=== PATIENT | male | born 1945 | race Caucasian/White ===

== ENCOUNTER → 2017-09-27 | Outpatient (CLI) | payer MEDICARE, MEDICAID ==
[~2017-09-27] MED LIST: ACETAMINOPHEN-1 EAC1 PO; ASPIR 8181 MG PO; BACTRIM DS TAB1 EACH PO; CARVEDILOL6.25 MG PO; CLONIDINE HCL0.2 M2 PO; FUROSEMIDE 20 M20 MG PO; GLUCOPHAGE500 MG PO; GLUCOTROL5 MG PO; ISOSORBIDE DINI30 MG PO; KEFLEX500 MG PO; KLOR-CON 1010 MEQ PO; LEVAQUIN 500 M500 M2 PO; LISINOPRIL20 MG PO; MEDROLDOSEPACK PO; NEURONTIN 300300 M1 PO; NIACIN SR 250250 MG PO; NORCO 5-325 TA1 EACH PO; NORTRIPTYLINE H10 M1 PO; NORVASC10 MG PO; PLAVIX 75 MG TA75 M1 PO; PRILOSEC 20 MG20 MG PO; PROAIR HFA8.5 GM INH; PROMETHAZINE D480 ML PO; TAMSULOSIN HCL0.4 M1 PO; TESSALON PERLE100 MG PO; TRAZODONE HCL50 MG PO; VITAMIN D50000 UNIT PO; ZANTAC 150MG T150 M1 PO; ZPAK PO
== END ==
LOC: M.WC 01:42
DX: E11.621 Type 2 diabetes mellitus with foot ulcer (principal); L97.421 Non-pressure chronic ulcer of left heel and midfoot limited to breakdown of skin; E11.51 Type 2 diabetes mellitus with diabetic peripheral angiopathy without gangrene; I70.202 Unspecified atherosclerosis of native arteries of extremities, left leg; I87.2 Venous insufficiency (chronic) (peripheral); I10 Essential (primary) hypertension; G47.30 Sleep apnea, unspecified; I25.2 Old myocardial infarction; F03.90 Unspecified dementia, unspecified severity, without behavioral disturbance, psychotic disturbance, mood disturbance, and anxiety; F17.210 Nicotine dependence, cigarettes, uncomplicated; Z96.651 Presence of right artificial knee joint; Z68.27 Body mass index [BMI] 27.0-27.9, adult

== ENCOUNTER → 2017-10-04 | Outpatient (CLI) | payer MEDICARE, MEDICAID | LOC: M.WC 02:22 | DX: E11.621 Type 2 diabetes mellitus with foot ulcer (principal); L97.421 Non-pressure chronic ulcer of left heel and midfoot limited to breakdown of skin; I70.202 Unspecified atherosclerosis of native arteries of extremities, left leg; E11.610 Type 2 diabetes mellitus with diabetic neuropathic arthropathy; E11.51 Type 2 diabetes mellitus with diabetic peripheral angiopathy without gangrene; I87.2 Venous insufficiency (chronic) (peripheral); I10 Essential (primary) hypertension; I25.2 Old myocardial infarction; L84 Corns and callosities; G47.30 Sleep apnea, unspecified; J44.9 Chronic obstructive pulmonary disease, unspecified; F03.90 Unspecified dementia, unspecified severity, without behavioral disturbance, psychotic disturbance, mood disturbance, and anxiety; F17.210 Nicotine dependence, cigarettes, uncomplicated; Z96.651 Presence of right artificial knee joint ==

== ENCOUNTER → 2017-10-11 | Outpatient (CLI) | payer MEDICARE, MEDICAID | LOC: M.WC 01:21 | DX: E11.621 Type 2 diabetes mellitus with foot ulcer (principal); L97.421 Non-pressure chronic ulcer of left heel and midfoot limited to breakdown of skin; E11.610 Type 2 diabetes mellitus with diabetic neuropathic arthropathy; E11.51 Type 2 diabetes mellitus with diabetic peripheral angiopathy without gangrene; I87.2 Venous insufficiency (chronic) (peripheral); I10 Essential (primary) hypertension; I25.2 Old myocardial infarction; L84 Corns and callosities; G47.30 Sleep apnea, unspecified; J44.9 Chronic obstructive pulmonary disease, unspecified; F03.90 Unspecified dementia, unspecified severity, without behavioral disturbance, psychotic disturbance, mood disturbance, and anxiety; F17.210 Nicotine dependence, cigarettes, uncomplicated; Z96.651 Presence of right artificial knee joint ==

== ENCOUNTER → 2017-10-18 | Outpatient (CLI) | payer MEDICARE, MEDICAID | LOC: M.WC 01:39 | DX: E11.621 Type 2 diabetes mellitus with foot ulcer (principal); I70.202 Unspecified atherosclerosis of native arteries of extremities, left leg; L97.421 Non-pressure chronic ulcer of left heel and midfoot limited to breakdown of skin; E11.51 Type 2 diabetes mellitus with diabetic peripheral angiopathy without gangrene; I87.2 Venous insufficiency (chronic) (peripheral); I10 Essential (primary) hypertension; I25.2 Old myocardial infarction; L84 Corns and callosities; G47.30 Sleep apnea, unspecified; J44.9 Chronic obstructive pulmonary disease, unspecified; F03.90 Unspecified dementia, unspecified severity, without behavioral disturbance, psychotic disturbance, mood disturbance, and anxiety; F17.210 Nicotine dependence, cigarettes, uncomplicated; Z96.651 Presence of right artificial knee joint ==

== ENCOUNTER 2018-12-15 22:41 | Inpatient (IN) | payer MEDICARE, MEDICAID ==
[~2018-12-15] VITALS: Ht 182.9 cm; Wt 87.5 kg
[2018-12-15 22:42] VITALS: BP 146/76
[2018-12-15 23:09] LABS: ABSOLUTE EOSINOPHILS 0.2 thou/uL (0.0-0.7); ABSOLUTE LYMPHOCYTES 1.4 thou/uL (0.8-5.3); ABSOLUTE MONOCYTES 0.8 thou/uL (0.0-1.2); ABSOLUTE NEUTROPHILS 4.9 thou/uL (1.6-8.1); BASOPHILS 0.6 %; EOSINOPHILS 2.3 %; HEMATOCRIT 36.8 % (42.0-52.0); HEMOGLOBIN 12.3 gm/dL (14.0-18.0); LYMPHOCYTES 18.8 %; MCH 29.5 pg (26.0-34.0); MCHC 33.3 g/dL (28.0-37.0); MCV 88.4 fL (80.0-100.0); MONOCYTES 10.9 %; NUCLEATED RBCS 0 /100WBC; PLATELET COUNT* 277 thou/uL (150-400); POLYS 67.4 %; RBC 4.16 mil/uL (4.50-6.00); RDW-CV 14.5 % (10.5-14.5); WBC 7.2 thou/uL (4.0-11.0)
[2018-12-15 23:22] LABS: APTT 33.4 Seconds (25.0-31.3); INR 1.2
[2018-12-15 23:24] LABS: BE 0.2 mmol/L (-2 to +3); PCO2 39.5 mmHg (35.0-45.0); PO2 72.1 mmHg (75.0-100.0); pH 7.414 (7.340-7.450)
[2018-12-15 23:29] LABS: ALBUMIN 3.5 g/dL (3.4-5.0); ALKALINE PHOSPHATASE 91 U/L (46-116); ANION GAP 9 mmol/L (7-16); BUN 19 mg/dL (7-18); CHLORIDE 104 mmol/L (98-107); CO2 25 mmol/L (21-32); CREATININE 1.1 mg/dL (0.6-1.3); GLUCOSE 129 mg/dL (70-99); SGOT 13 U/L (15-37); SGPT 16 U/L (30-65); SODIUM 138 mmol/L (136-145); TOTAL BILIRUBIN 0.5 mg/dL (<0.1-1.0); TOTAL PROTEIN 7.9 g/dL (6.4-8.2); TROPONIN-I LEVEL <0.06 ng/mL (<0.06)
[2018-12-16 00:17] LABS: INFLUENZA A ANTIGEN None Detected (None Detect); INFLUENZA B ANTIGEN None Detected (None Detect)
[2018-12-16 04:43] VITALS: BP 127/80
[2018-12-16 07:40] VITALS: BP 132/78
[2018-12-16 07:57] VITALS: BP 134/81
--- NOTE | 2018-12-16 08:14 | NUR ---
PATIENT CAME TO THE FLOOR FROM THE ER VIA BED IN STABLE CONDITION. VITAL SIGNS STABLE ON 6 LITERS OF OXYGEN THROUGH NASAL CANNULA. LUNGS ARE VERY TIGHT AND DIMINISHED SOUNDING, HEART RATE IS IRREGULAR. ROOM ORIENTATION AND ADMISSION ASSESSMENT DONE, CALL LIGHT IS IN REACH, WILL CONTINUE TO MONITOR.
[2018-12-16] MEDS ORDERED: ELIQUIS5 MG PO (10:48)
[2018-12-16] MEDS ORDERED: LIPITOR80 MG PO (10:51)
[2018-12-16] MEDS ORDERED: SYMBICORT160 MCG/4. INH (10:58)
[2018-12-16] MEDS ORDERED: SPIRIVA INH (10:58)
[2018-12-16 14:03] VITALS: BP 132/77
--- NOTE | 2018-12-16 16:13 | NUR ---
CARMEN met with pt and pt dtr, pt son in law, 2 pt granddtrs and there was also a great granddtr (baby) present visiting pt. Pt alert, oriented, possibly confused at times but easily directed. Pt lives in his sister in law's home and pt son also lives there. Pt dtr expressed awareness that the ER stated pt would need a nebulizer and oxygen at dc. Pt and pt family questioned somebody discussing life support? Lung Ca? CARMEN explained that someone might have been asking pt and pt family about DPOA and Advanced Directive which would specify pt wishes and whether or not pt would want to be on life support. CARMEN offered information/education for DPOA and AD if pt/family interested. Pt dtr expressed need for housing information for pt as pt recently learned that his sister in law plans to move out of her house and has expressed to pt and pt son that they will need to find a different place to live. CARMEN provided [employer] and pointed out the section for housing resources and senior housing options. SW to continue to follow to assist with safe dc planning...possibly tomorrow; with assistance in arranging for nebulizer and home oxygen if pt qualifies.
--- NOTE | 2018-12-16 17:09 | EKG ---
[place] [address] ELECTROCARDIOGRAM REPORT Name: SALINAS MONTAÑO Room: [address] ADM IN M.R.#: [id number] Admission: 12/16/18 Attend Phys: Stacie Cobian Discharge: Date of : 49 Report #: [id number] THIS REPORT FOR: //name// [facility] ED Test Date: 2018-12-15 Test Time: 23:43:47 Pat Name: SALINAS MONTAÑO Department: Room: [facility] Gender: M Associate Genetics Professor: SAVANNAH : 1945 Requested By: Payton Merrill Order Number: [id number] MD: Hoang Almaraz Measurements Intervals [place] Rate: 86 P: DC: QRS: 81 QRSD: 92 T: 35 QT: 379 QTc: 454 Interpretive Statements Atrial fibrillation Borderline right axis deviation Minimal ST depression, anterolateral leads Compared to ECG 12/10/2016 15:51:25 Sinus rhythm no longer present ST (T wave) deviation still present Electronically Signed On 12-16-2018 17:08:58 CDT by Hoang Almaraz [email or web address] <ELECTRONICALLY SIGNED> By: Hoang Almaraz MD, FACC 12/16/18 1708 [id number] Hoang Almaraz MD, FAC /EPI
[2018-12-16 17:41] VITALS: BP 141/61
--- NOTE | 2018-12-16 17:56 | NUR ---
PATIENT IS ALERT AND ORIENTED TODAY VERY PLEASANT. UP IN ROOM WITH WALKER DUE TO FOOT WOUNDS. PHOTOS TAKEN AND REDRESSED TODAY. VITAL SIGNS STABLE ON ROOM AIR AND OXYGEN NEEDED. NO COMPLAINTS OF PAIN TODAY. CALL LIGHT IS IN REACH WILL CONTINUE TO MONITOR,
[2018-12-17] VITALS (7 sets, daily range): BP systolic 105–134; BP diastolic 58–68
[2018-12-17 04:17] LABS: HEMATOCRIT 36.3 % (42.0-52.0); MCH 29.4 pg (26.0-34.0); MCHC 33.1 g/dL (28.0-37.0); MCV 88.7 fL (80.0-100.0); MPV 7.4 fl. (7.2-11.1); NUCLEATED RBCS 0 /100WBC; PLATELET COUNT* 277 thou/uL (150-400); RBC 4.09 mil/uL (4.50-6.00); RDW-CV 14.2 % (10.5-14.5); WBC 9.3 thou/uL (4.0-11.0)
[2018-12-17 04:46] LABS: CALCIUM 8.7 mg/dL (8.5-10.1); CREATININE 0.9 mg/dL (0.6-1.3); MAGNESIUM 2.3 mg/dL (1.8-2.4); POTASSIUM 4.2 mmol/L (3.5-5.1)
--- NOTE | 2018-12-17 06:05 | NUR ---
PATIENT SITTING IN RECLINER AT BEGINNING OF SHIFT. PT UP AD ROSI IN ROOM WITH USE OF WALKER. PT ON ROOM AIR. PT DENIES PAIN/NAUSEA. PT WITH SALINE LOCK IN LT AC. PT WITH 2100 BLOOD SUGAR OF 281; LISPRO 12 UNITS GIVEN. PT DENIES NEEDS AT THIS TIME. FREQUENTLY USED ITEMS AND CALL LIGHT WITHIN REACH. SIDERAILS UPX2. WILL CONTINUE TO MONITOR.
[2018-12-17 06:11] LABS: ABSOLUTE LYMPHOCYTES 0.7 thou/uL (0.8-5.3); ABSOLUTE MONOCYTES 0.7 thou/uL (0.0-1.2); ABSOLUTE NEUTROPHILS 7.8 thou/uL (1.6-8.1); ANISOCYTOSIS 1+; PLATELET ESTIMATE ADEQUATE; POIKILOCYTOSIS 1+
[2018-12-17] MEDS ORDERED: AZITHROMYCIN 2250 MG PO (14:30)
[2018-12-17] MEDS ORDERED: PREDNISONE 20 M20 MG PO (14:31)
--- NOTE | 2018-12-17 16:10 | NUR ---
PATIENT DISCHARGED TO HOME WITH HOME HEALTH. DISCHARGE PAPERS REVIEWED AND SIGNED. PRESCRIPTIONS AND INFORMASTION SHEETS GIVEN. IV REMOVED. BELONGINGS PACKED. FAMILY UNABLE TO TRANSPORT HOME. [facility] PROVIDED. PATIENT LEFT BY [facility] AT THIS TIME.
--- NOTE | 2018-12-17 16:58 | NUR ---
SUPERINTENDENT MENAGERIE INFORMED THAT THE PATIENT WOUDL D/C HOME TODAY AND WOULD NEED NEBULIZER FOR HOME USE AND HH. D/C EQUIPMENT MAINTENANCE SUPERINTENDENT SPOKE TO HARSHA WITH [employer] TO INFORM OF THE DME REFERRAL AND FAXED THE PATIENT'S FACESHEET, H&P, AND DME ORDER. [facility] TO DELIVER THE NEBULIZER TO THE PATIENTS HOME ADDRESS. D/C EQUIPMENT MAINTENANCE SUPERINTENDENT SPOKE TO [facility] TO INFORM OF THE HH REFERRAL, AND FAXED THE PATIENT'S FACESHEET, H&P, AND D/C SUMMARY TO [facility]. PATIENT'S PCP NOT LISTED ON FACESHEET, AND HOME PHONE NUMBER INCORRECT. [facility] INFORMED OF CORRECT INFO. CM WILL REMAIN AVIALABLE TO ASSIST AND FOLLOW NEEDED. PATIENT'S PCP: HUANG GUEVARA PATIENT'S CONTCAT INFO: [phone]
== END 2018-12-17 16:10 | disposition home health service (06) | DRG 189 ==
LOC: M.ERS 22:41 → M.TBA-ER 12-16 00:42 → M.3W 12-16 00:42
PROVIDERS: Family Medicine; Physician Assistant; ADMIT Internal Medicine
DX: J96.21 Acute and chronic respiratory failure with hypoxia (principal); J44.1 Chronic obstructive pulmonary disease with (acute) exacerbation; I50.22 Chronic systolic (congestive) heart failure; I13.0 Hypertensive heart and chronic kidney disease with heart failure and stage 1 through stage 4 chronic kidney disease, or unspecified chronic kidney disease; Z96.651 Presence of right artificial knee joint; I48.91 Unspecified atrial fibrillation; F03.90 Unspecified dementia, unspecified severity, without behavioral disturbance, psychotic disturbance, mood disturbance, and anxiety; E11.22 Type 2 diabetes mellitus with diabetic chronic kidney disease; I25.10 Atherosclerotic heart disease of native coronary artery without angina pectoris; E11.51 Type 2 diabetes mellitus with diabetic peripheral angiopathy without gangrene; E11.65 Type 2 diabetes mellitus with hyperglycemia; T38.0X5A Adverse effect of glucocorticoids and synthetic analogues, initial encounter; N18.2 Chronic kidney disease, stage 2 (mild); F17.210 Nicotine dependence, cigarettes, uncomplicated; I25.2 Old myocardial infarction; Z95.5 Presence of coronary angioplasty implant and graft; Z85.118 Personal history of other malignant neoplasm of bronchus and lung; Z86.73 Personal history of transient ischemic attack (TIA), and cerebral infarction without residual deficits; Z79.82 Long term (current) use of aspirin; Z79.84 Long term (current) use of oral hypoglycemic drugs; Z79.899 Other long term (current) drug therapy; Z71.6 Tobacco abuse counseling